=== PATIENT | female | born 1970 | race Caucasian/White ===

== ENCOUNTER 2024-07-21 21:39 | Inpatient (IN) | payer MEDICAID, OTHER ==
[~2024-07-21] VITALS: Ht 165.1 cm; Wt 93.0 kg
[2024-07-21] MEDS ORDERED: MAGNESIUM/ALUMINUM HYDROXIDE/SIMETHICONE 30ML UDC PO ONE (23:15)
[2024-07-21] MEDS ORDERED: ONDANSETRON HCL 4MG/2ML INJ IV ONE (23:30)
[2024-07-22 01:07] LABS: BASOPHILS % 0.3 % (0.0-2.0); EOSINOPHILS % 1.8 % (0.0-5.0); HEMATOCRIT. 39.6 % (36.0-48.0); HEMOGLOBIN. 13.7 g/dL (12.0-16.0); LYMPHOCYTES % 24.1 % (20.0-50.0); MEAN CORPUSCULAR HEMOGLOBIN 30.1 pg (28.0-32.0); MEAN CORPUSCULAR HGB CONC 34.7 g/dL (31.0-37.0); MEAN CORPUSCULAR VOLUME 86.7 fL (81.0-99.0); MEAN PLATELET VOLUME 9.9 fl (7.4-10.4); MONOCYTES % 7.8 % (2.0-8.0); PLATELET 125 x1000/uL (130-400); RED BLOOD CELL COUNT 4.57 mill/uL (4.2-5.4); WHITE BLOOD COUNT 6.7 x1000/uL (4.5-11.0)
[2024-07-22 01:12] LABS: CHLORIDE 103 mEq/L (98-107); POTASSIUM 4.1 mEq/L (3.5-5.1); SODIUM 138 mEq/L (136-145)
[2024-07-22 01:13] LABS: CALCIUM 10.1 mg/dL (8.7-10.4); CARBON DIOXIDE 31 mEq/L (21-32)
[2024-07-22 01:18] LABS: GLUCOSE 116 mg/dL (70-105); UREA NITROGEN BLOOD 9 mg/dL (9-23)
[2024-07-22 01:20] LABS: ALANINE AMINOTRANSFERASE 62 IU/L (10-49); ALBUMIN 4.9 g/dL (3.2-4.8); ASPARTATE AMINOTRANSFERASE 69 IU/L (<34); BILIRUBIN TOTAL 0.4 mg/dL (0.1-1.0)
[2024-07-22] MEDS: MAGNESIUM/ALUMINUM HYDROXIDE/SIMETHICONE 30ML UDC PO SCH (01:21)
[2024-07-22] MEDS: ONDANSETRON HCL 4MG/2ML INJ IV SCH (01:21)
[2024-07-22] MEDS: ACETAMINOPHEN 1000MG/100ML 100 ML IV ONE (01:22)
[2024-07-22 01:29] LABS: BILIRUBIN DIRECT < 0.1 mg/dL (<=3.0); ETHANOL BLOOD < 10 mg/dL (<10)
[2024-07-22 01:30] LABS: TROPONIN I HIGH SENSITIVITY 58 ng/L (3.0-34)
[2024-07-22 01:48] LABS: *AMPHETAMINES SCREEN URINE NEGATIVE (NEGATIVE)
[2024-07-22 01:49] LABS: *BARBITURATES SCREEN URINE NEGATIVE (NEGATIVE); *BENZODIAZEPINES SCREEN URINE NEGATIVE (NEGATIVE); *COCAINE SCREEN URINE NEGATIVE (NEGATIVE); CANNABINOID URINE SCREEN NEGATIVE (NEGATIVE); ECSTASY MDMA SCREEN URINE NEGATIVE (NEGATIVE); METHADONE URINE SCREEN NEGATIVE (NEGATIVE); OPIATES URINE SCREEN NEGATIVE (NEGATIVE); PHENCYCLIDINE URINE SCREEN NEGATIVE (NEGATIVE)
[2024-07-22 01:55] LABS: CLARITY URINE CLEAR (CLEAR); COLOR URINE YELLOW (YELLOW); GLUCOSE URINE NEGATIVE (NEGATIVE); KETONES URINE NEGATIVE (NEGATIVE); LEUKOCYTE ESTERASE URINE NEGATIVE (NEGATIVE); NITRITE URINE NEGATIVE (NEGATIVE); OCCULT BLOOD URINE NEGATIVE (NEGATIVE); PH URINE 7.5 (4.5-8.0); PROTEIN URINE NEGATIVE (NEGATIVE); SPECIFIC GRAVITY URINE 1.011 (1.005-1.030); UROBILINOGEN URINE 0.2 E.U./dL (0.2-1.0)
[2024-07-22] MEDS: LABETALOL 5MG/ML 4ML INJ IV ONE (01:58)
[2024-07-22 02:12] LABS: PARTIAL THROMBOPLASTIN TIME 28.4 sec (23.4-31.0); PROTHROMBIN TIME 11.3 sec (9.6-11.0)
[2024-07-22] MEDS: IOHEXOL-300 100 ML BOTTLE ONE (04:43)
[2024-07-22] MEDS ORDERED: DOCUSATE SODIUM 100MG CAPSULE PO PRN (06:45)
[2024-07-22] MEDS ORDERED: ACETAMINOPHEN 325MG TABLET PO PRN (06:45)
[2024-07-22] MEDS ORDERED: IPRATROPIUM/ALBUTEROL 0.5-3(2.5)MG/3ML NEB NEB PRN (06:45)
[2024-07-22] MEDS ORDERED: CLONIDINE 0.1MG TABLET PO PRN (06:45)
[2024-07-22] MEDS ORDERED: ONDANSETRON HCL 4MG/2ML INJ IV PRN (06:45)
[2024-07-22] MEDS ORDERED: MAGNESIUM/ALUMINUM HYDROXIDE/SIMETHICONE 30ML UDC PO PRN (06:45)
[2024-07-22] MEDS ORDERED: GUAIFENESIN 200MG/10ML SUGAR FREE UDC PO PRN (06:45)
[2024-07-22] MEDS ORDERED: NITROGLYCERIN 0.4MG TABLET SL SL PRN (07:45)
[2024-07-22] MEDS: AMLODIPINE 5MG TABLET PO SCH (07:56)
[2024-07-22 08:22] LABS: IRON 70 ug/dL (50-170); TRIGLYCERIDE 199 mg/dL (0-150)
[2024-07-22 08:23] LABS: LDL CHOLESTEROL 159 mg/dL (5-100)
[2024-07-22 08:24] LABS: CHOLESTEROL 214 mg/dL (<200); HDL CHOLESTEROL 41 mg/dL (>65)
[2024-07-22 08:25] LABS: TOTAL IRON BINDING CAPACITY 308 ug/dl (250-425)
[2024-07-22 08:28] LABS: T4 FREE 0.99 ng/dL (0.89-1.76)
[2024-07-22 08:29] LABS: THYROID STIMULATING HORMONE 2.53 uIU/mL (0.55-4.78)
[2024-07-22] MEDS: FAMOTIDINE 20MG TABLET PO SCH (08:56)
[2024-07-22] MEDS: ENOXAPARIN 40MG/0.4ML SYR SUBCUT SCH (08:56)
[2024-07-22] MEDS: ASPIRIN 325MG EC TABLET PO SCH (08:56)
[2024-07-22 08:57] LABS: FOLIC ACID (FOLATE) SERUM > 20.00 ng/mL (>5.38)
[2024-07-22 10:07] LABS: VITAMIN B12 SERUM > 2000 pg/mL (211-911)
[2024-07-22 11:06] LABS: TROPONIN I HIGH SENSITIVITY 28 ng/L (3.0-34)
[2024-07-22] MEDS ORDERED: METOPROLOL TARTRATE 5MG/5ML VIAL IV PRN (15:00)
[2024-07-22] MEDS: METOPROLOL TARTRATE 50MG TABLET PO SCH (15:16)
[2024-07-22] MEDS: PIPERACILLIN/TAZO 3.375G/50ML 50 ML IV SCH (15:16)
[2024-07-22] MEDS: NITROGLYCERIN OINT 1GM/INCH UDPKT TD SCH (15:16)
[2024-07-22 20:00] VITALS: BP 119/71; PULSE 63; RESP 18; TEMP 36.6696; TEMP 36.696; O2SAT 96
[2024-07-22 20:52] VITALS: BP 143/71; PULSE 87; RESP 18; TEMP 37.0852
[2024-07-22] MEDS ORDERED: ZOLPIDEM TARTRATE 5MG TABLET PO PRN (21:00)
[2024-07-22 22:00] VITALS: BP 117/71; RESP 18; TEMP 36.6696; O2SAT 96
[2024-07-22] MEDS: ATORVASTATIN CALCIUM 10MG TABLET PO SCH (22:00)
[2024-07-22 23:45] VITALS: BP 133/74; PULSE 56; RESP 18; TEMP 36.5848
[2024-07-23] VITALS: BP 133/74; PULSE 56; RESP 18; TEMP 36.55848; O2SAT 96
[2024-07-23 00:36] LABS: CREATINE KINASE MB FRACTION 0.7 ng/mL (0.5-3.6)
[2024-07-23] MEDS: KETOROLAC 15MG/ML VIAL IV PRN (02:16)
[2024-07-23 04:00] VITALS: BP 110/61; PULSE 52; RESP 18; TEMP 36.50292; O2SAT 98
[2024-07-23 06:35] LABS: CHLORIDE 104 mEq/L (98-107); POTASSIUM 3.6 mEq/L (3.5-5.1); SODIUM 140 mEq/L (136-145)
[2024-07-23 06:38] LABS: CALCIUM 9.8 mg/dL (8.7-10.4); CARBON DIOXIDE 28 mEq/L (21-32)
[2024-07-23 06:43] LABS: CREATININE 1.2 mg/dL (0.6-1.0); GLUCOSE 104 mg/dL (70-105)
[2024-07-23 06:44] LABS: UREA NITROGEN BLOOD 12 mg/dL (9-23)
[2024-07-23 06:45] LABS: ALANINE AMINOTRANSFERASE 49 IU/L (10-49); ALBUMIN 4.3 g/dL (3.2-4.8); ASPARTATE AMINOTRANSFERASE 57 IU/L (<34)
[2024-07-23 06:46] LABS: BILIRUBIN TOTAL 0.5 mg/dL (0.1-1.0); PHOSPHORUS 3.4 mg/dL (2.5-4.9); PROTEIN TOTAL 7.2 g/dL (6.0-8.3)
[2024-07-23] MEDS: SODIUM CHLORIDE 0.45% 500 ML IV ONE (07:15)
[2024-07-23 07:27] LABS: BASOPHILS % 0.2 % (0.0-2.0); EOSINOPHILS % 2.2 % (0.0-5.0); HEMATOCRIT. 39.3 % (36.0-48.0); HEMOGLOBIN. 13.1 g/dL (12.0-16.0); LYMPHOCYTES % 22.1 % (20.0-50.0); MEAN CORPUSCULAR HEMOGLOBIN 29.1 pg (28.0-32.0); MEAN CORPUSCULAR HGB CONC 33.3 g/dL (31.0-37.0); MEAN CORPUSCULAR VOLUME 87.5 fL (81.0-99.0); MEAN PLATELET VOLUME 10.5 fl (7.4-10.4); MONOCYTES % 8.5 % (2.0-8.0); PLATELET 127 x1000/uL (130-400); RED BLOOD CELL COUNT 4.49 mill/uL (4.2-5.4); RED CELL DISTRIBUTION WIDTH 13.1 % (11.6-14.6); WHITE BLOOD COUNT 6.8 x1000/uL (4.5-11.0)
[2024-07-23 08:00] VITALS: BP 124/73; PULSE 60; RESP 18; TEMP 36.6696
[2024-07-23] MEDS: AMLODIPINE 10MG TABLET PO SCH (09:47)
[2024-07-23 12:00] VITALS: BP 126/70; PULSE 56; RESP 20; TEMP 37.11408; O2SAT 97
[2024-07-23] MEDS: ACETAMINOPHEN 325MG TABLET PO PRN (12:35)
[2024-07-23 16:00] VITALS: BP 132/72; PULSE 58; RESP 20; TEMP 35.5584; O2SAT 98
[2024-07-23 20:00] VITALS: BP 123/77; PULSE 55; RESP 20; TEMP 36.50292; O2SAT 99
[2024-07-23] MEDS: ENOXAPARIN 30MG/0.3ML SYR SUBCUT SCH (21:21)
[2024-07-24] VITALS: BP 113/78; PULSE 68; RESP 18; TEMP 36.72516; O2SAT 99
[2024-07-24 04:00] VITALS: BP 122/73; PULSE 61; RESP 16; TEMP 36.83628; O2SAT 96
[2024-07-24 06:48] LABS: POTASSIUM 3.6 mEq/L (3.5-5.1)
[2024-07-24 06:49] LABS: CALCIUM 9.6 mg/dL (8.7-10.4)
[2024-07-24] MEDS ORDERED: ATOR10TA PO (07:10)
[2024-07-24] MEDS ORDERED: FAMO20TA8 PO (07:10)
[2024-07-24] MEDS ORDERED: AMLO10TA80 PO (07:10)
[2024-07-24 08:00] VITALS: BP 147/79; PULSE 70; RESP 18; TEMP 36.72516; O2SAT 97
[2024-07-24 12:00] VITALS: BP 145/70; PULSE 80; RESP 20; TEMP 36.44736; O2SAT 97
[2024-07-24 13:54] VITALS: BP 140/70; PULSE 74; TEMP 98.6; O2SAT 97
== END 2024-07-24 15:33 | disposition home or self-care (01) ==
LOC: ER 21:39 → 5WST 07-22 01:47 → EDBEDREQ 07-22 01:53 → EDBEDREQTM 07-22 01:53 → 8WST 07-22 23:39
PROVIDERS: ADMIT Internal Medicine; ATTEND Internal Medicine
DX: K80.00 Calculus of gallbladder with acute cholecystitis without obstruction (principal); I21.4 Non-ST elevation (NSTEMI) myocardial infarction; D69.6 Thrombocytopenia, unspecified; N17.9 Acute kidney failure, unspecified; R16.0 Hepatomegaly, not elsewhere classified; I16.1 Hypertensive emergency; K76.0 Fatty (change of) liver, not elsewhere classified; E78.5 Hyperlipidemia, unspecified; I10 Essential (primary) hypertension; R74.01 Elevation of levels of liver transaminase levels; R73.03 Prediabetes; J98.11 Atelectasis; N32.89 Other specified disorders of bladder; Z79.899 Other long term (current) drug therapy; Z82.49 Family history of ischemic heart disease and other diseases of the circulatory system
CPT/HCPCS: 36415; 71045; 74177; 76705; 80048; 80053; 80061; 80076; 80305; 80320; 81003; 82550; 82553; 82607; 82746; 83036; 83540; 83550; 83735; 83880; 84100; 84439; 84443; 84484; 85025; 85379; 93005; 93306; 93970; 99285; J1650; J1885; J2405; J2543; J3490; Q9967; G0480; J0131

== ENCOUNTER 2024-07-26 06:38 | Emergency (ER) | payer MEDICAID ==
[~2024-07-26] VITALS: Ht 165.1 cm; Wt 93.2 kg
[~2024-07-26 06:38] MED LIST: AMLO10TA80 PO; ATOR10TA PO; FAMO20TA8 PO
[2024-07-26 06:49] VITALS: O2SAT 97
[2024-07-26 06:53] VITALS: TEMP 98.1; O2SAT 99
[2024-07-26 08:36] LABS: BASOPHILS % 0.3 % (0.0-2.0); EOSINOPHILS % 1.4 % (0.0-5.0); HEMATOCRIT. 41.8 % (36.0-48.0); HEMOGLOBIN. 14.3 g/dL (12.0-16.0); LYMPHOCYTES % 19.9 % (20.0-50.0); MEAN CORPUSCULAR HGB CONC 34.3 g/dL (31.0-37.0); MEAN CORPUSCULAR VOLUME 87.6 fL (81.0-99.0); MEAN PLATELET VOLUME 9.5 fl (7.4-10.4); MONOCYTES % 8.3 % (2.0-8.0); NEUTROPHILS % 70.1 % (40.0-76.0); PLATELET 145 x1000/uL (130-400); RED BLOOD CELL COUNT 4.77 mill/uL (4.2-5.4); RED CELL DISTRIBUTION WIDTH 13.2 % (11.6-14.6); WHITE BLOOD COUNT 7.5 x1000/uL (4.5-11.0)
[2024-07-26 08:43] LABS: CHLORIDE 103 mEq/L (98-107); POTASSIUM 4.2 mEq/L (3.5-5.1); SODIUM 136 mEq/L (136-145)
[2024-07-26 08:44] LABS: CALCIUM 10.1 mg/dL (8.7-10.4); CARBON DIOXIDE 28 mEq/L (21-32)
[2024-07-26 08:49] LABS: GLUCOSE 116 mg/dL (70-105); UREA NITROGEN BLOOD 12 mg/dL (9-23)
[2024-07-26 08:50] LABS: ALANINE AMINOTRANSFERASE 56 IU/L (10-49); ALBUMIN 4.9 g/dL (3.2-4.8); ASPARTATE AMINOTRANSFERASE 68 IU/L (<34)
[2024-07-26 08:51] LABS: BILIRUBIN DIRECT 0.1 mg/dL (<=3.0); BILIRUBIN TOTAL 0.5 mg/dL (0.1-1.0); PROTEIN TOTAL 8.3 g/dL (6.0-8.3)
[2024-07-26 09:25] VITALS: BP 170/86; PULSE 86; RESP 16
[2024-07-26] MEDS: HYDROCODONE/ACETAMINOPHEN 5/325MG TABLET PO STA (09:25)
[2024-07-26 10:09] LABS: CLARITY URINE CLEAR (CLEAR); COLOR URINE YELLOW (YELLOW); GLUCOSE URINE NEGATIVE (NEGATIVE); KETONES URINE NEGATIVE (NEGATIVE); LEUKOCYTE ESTERASE URINE TRACE (NEGATIVE); NITRITE URINE NEGATIVE (NEGATIVE); OCCULT BLOOD URINE NEGATIVE (NEGATIVE); PH URINE 6.5 (4.5-8.0); PROTEIN URINE NEGATIVE (NEGATIVE); SPECIFIC GRAVITY URINE 1.016 (1.005-1.030); UROBILINOGEN URINE 0.2 E.U./dL (0.2-1.0)
[2024-07-26] MEDS ORDERED: T3 PO (11:01)
[2024-07-26] MEDS ORDERED: ONDA4TAB50 MT (11:02)
[2024-07-26 11:21] LABS: RBC URINE 0-2 /hpf (0-2); SQUAMOUS EPITHELIAL CELL URINE 1+ /lpf (RARE/1+); WBC URINE 0-2 /hpf (0-2)
[2024-07-26 11:22] LABS: BACTERIA URINE TRACE; MUCUS URINE TRACE /lpf (< = 2+)
[2024-07-26] MEDS: ONDANSETRON 4MG ODT PO ONE (11:24)
== END 2024-07-26 11:24 | disposition home or self-care (01) ==
LOC: ER 06:48
DX: K80.70 Calculus of gallbladder and bile duct without cholecystitis without obstruction (principal); E78.00 Pure hypercholesterolemia, unspecified; I10 Essential (primary) hypertension; Z98.890 Other specified postprocedural states
CPT/HCPCS: 80076; 80048; 81003; 83690; 85025; 36415; 76705; 93005; 99284; Q0162; Z7610 ×3